=== PATIENT | female | born 1995 | race Caucasian/White ===

== ENCOUNTER 2020-05-29 19:47 | Emergency (ER) | payer OTHER ==
[2020-05-29] MEDS ORDERED: NA CHLORIDE 0.9% 1,000 ML ONE (20:25)
[2020-05-29 20:33] LABS: Absolute Lymphocytes (CBC) 0.9 K/uL (0.7-4.9); Basophils % 0.2 % (0-1.3); Hematocrit 42.3 % (36.0-45.0); Lymphocytes % 9.1 % (15.3-44.8); MPV 9.4 fL (7.6-11.3)
[2020-05-29 20:42] LABS: Albumin 3.9 g/dL (3.4-5.0); Bilirubin Direct 0.1 mg/dL (0-0.2); Bilirubin Total 0.4 mg/dL (0.2-1.0); Potassium 3.5 mmol/L (3.5-5.1); Protein, Total 8.2 g/dL (6.4-8.2); Urine Bacteria >50 /HPF (<20); Urine Culture Reflex Order REFLEXED; Urine RBC <5 /HPF (NONE SEEN)
[2020-05-29] MEDS ORDERED: CEFTRIAXONE/SWI 1gm 1 GM/10 ML SYR ONE (22:12)
[2020-05-29] MEDS ORDERED: KETOROLAC 30 MG/ML INJ ONE (22:12)
[2020-05-29 22:32] LABS: Urine Specific Gravity 1.015 (1.005-1.030)
[2020-05-29 22:32] LABS: Urine Blood TRACE (NEG); Urine Glucose NEGATIVE (NEG); Urine Protein NEGATIVE (NEG); Urine Specific Gravity 1.015 (1.005-1.030)
--- NOTE | 2020-05-29 22:37 | ER ---
Nurse's Notes [facility] Name: Heide Gilbert Age: 25 yrs Sex: Female : 1995 Arrival Date: 05/29/2020 Time: 19:53 Bed 2 Private MD: Diagnosis: Lower abdominal pain, unspecified;Urinary tract infection, site not specified Presentation: 05/29 20:04 Chief complaint: Patient states: Pain to epigastric area that began yesterday, now pain lp1 radiating to RLQ of abdomen with diarrhea and nausea; Temp of 102 at home, took Ibuprofen x2 at 1800; states some pain to lower back. Coronavirus screen: Client denies travel out of the [place] in the last 14 days. At this time, the client does not indicate any symptoms associated with coronavirus-19. Ebola Screen: No symptoms or risks identified at this time. Initial Sepsis Screen: Does the patient meet any 2 criteria? HR > 90 bpm. Does the patient have a suspected source of infection? No. Patient's initial sepsis screen is negative. Risk Assessment: Do you want to hurt yourself or someone else? Patient reports no desire to harm self or others. Onset of symptoms was May 28, 2020. 20:04 Method Of Arrival: Ambulatory lp1 20:04 Acuity: DOROTEO 3 lp1 Triage Assessment: 22:00 GI: Reports lower abdominal pain. 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 - Social history:: Smoking status: Patient denies any tobacco usage or history of. Screenin:07 Abuse screen: Denies threats or abuse. Denies injuries from another. Nutritional lp1 screening: No deficits noted. Tuberculosis screening: No symptoms or risk factors identified. Fall Risk None identified. Assessment: 20:17 General: Appears comfortable, Behavior is calm, cooperative. Pain: Complains of pain in rv right lower quadrant Pain radiates to right low back Pain currently is 7 out of 10 on a pain scale. Quality of pain is described as crampy, sharp. Neuro: Level of Consciousness is awake, alert, obeys commands, Oriented to person, place, time, situation. Cardiovascular: Patient's skin is warm and dry. Rhythm is sinus tachycardia. Respiratory: Airway is patent Respiratory effort is even, unlabored. GI: Abdomen is round non-distended. : No signs and/or symptoms were reported regarding the genitourinary system. Derm: Skin is intact. 20:38 Reassessment: PO CONTRAST FINISHED AT 2019. rv 22:06 Reassessment: PATIENT IS BACK FROM CT SCAN. AWAITING RESULT. PAIN REASSESSED. NEW rv ORDERS RECEIVED. GIVEN TORADOL AND ROCEPHIN. Vital Signs: 20:04 BP 110 / 99; Pulse 129; Resp 16; Temp 99.3(O); Pulse Ox 100% on R/A; Weight 46.72 kg lp1 (R); Height 5 ft. 0 in. (152.40 cm); Pain 5/10; 21:25 Pulse 109; Resp 18; Pulse Ox 100% on R/A; mg2 22:05 BP 124 / 82; Pulse 109; Resp 18; Pulse Ox 100% ; rv 23:03 BP 121 / 80; Pulse 97; Resp 17; Temp 98.7; Pulse Ox 100% on R/A; rv 20:04 Body Mass Index 20.12 (46.72 kg, 152.40 cm) lp1 ED Course: 19:53 Patient arrived in ED. am2 19:57 Aleks Fong, IVETTE is Primary Nurse. rv 19:57 Loco Reed PA is PHCP. cp 19:57 Loco Razo MD is Attending Physician. cp 19:58 Calvin Taylor MD is Attending Physician. cp 20:06 Triage completed. lp1 20:06 Arm band placed on. lp1 20:17 No provider procedures requiring assistance completed. Inserted saline lock: 20 gauge mg2 in left antecubital area, using aseptic technique. Blood collected. 20:19 Patient has correct armband on for positive identification. Pulse ox on. NIBP on. rv 21:58 CT completed. Patient tolerated procedure well. Patient moved back from CT. nj 22:26 Abdomen In Process Unspecified. EDMS 22:36 Koffi Joshua MD is Referral Physician. cp 22:59 IV discontinued, intact, bleeding controlled, No redness/swelling at site. Pressure mg2 dressing applied. Administered Medications: 20:16 Drug: NS 0.9% 1000 ml Route: IV; Rate: 1 bolus; Site: left antecubital; rv 22:58 Follow up: Response: No adverse reaction; IV Status: Completed infusion; IV Intake: mg2 1000ml 22:05 Drug: TORadol - Ketorolac 15 mg Route: IVP; Site: left antecubital; rv 22:58 Follow up: Response: No adverse reaction mg2 22:05 Drug: Rocephin 1 grams Route: IV; Rate: calculated rate; Site: left antecubital; rv 22:58 Follow up: Response: No adverse reaction; IV Status: Completed infusion mg2 23:00 Drug: HYDROcodone-acetaminophen (5 mg-500 mg) 1 tabs {Note: RASS 0.} Route: PO; rv 23:03 Follow up: Response: Medication administered at discharge. rv Intake: 22:58 IV: 1000ml; Total: 1000ml. mg2 Outcome: 22:37 Discharge ordered by . cp 22:59 Discharged to home ambulatory. mg2 22:59 Condition: stable 22:59 Discharge instructions given to patient, Instructed on discharge instructions, follow up and referral plans. medication usage, Demonstrated understanding of instructions, follow-up care, medications, Prescriptions given X 3. 23:04 Patient left the ED. rv Addendum: 06/02/2020 07:50 Addendum: Culture Results: Positive urine culture. No further action required. Bacteria h b sensitive to prescribed antibiotic. Signatures: Dispatcher [employer] EDAR Ping Ceja RN RN lp1 Loco Reed PA PA cp Yenni Villela RN RN Brett Diaz Amanda amGabriel Park RN RN mg2 Aleks Fong RN RN rv
--- NOTE | 2020-05-29 22:37 | EDPHYS ---
Physician Documentation [facility] Name: Heide Gilbert Age: 25 yrs Sex: Female : 1995 Arrival Date: 05/29/2020 Time: 19:53 Bed 2 Private MD: ED Physician Calvin Taylor HPI: 05/29 20:15 This 25 yrs old Female presents to ER via Ambulatory with complaints of Nausea, Fever, cp Abdominal Pain. 20:15 The patient presents with abdominal pain started mid abdomen yesterday, now having pain cp right lower abdomen. 20:15 Onset: The symptoms/episode began/occurred yesterday. Associated signs and symptoms: cp Pertinent positives: anorexia, diarrhea, nausea, Pertinent negatives: blood in stools, constipation, dysuria, fever, vaginal discharge, vomiting. 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 - Social history:: Smoking status: Patient denies any tobacco usage or history of. ROS: 20:15 Constitutional: Negative for fever, poor PO intake. cp 20:15 Eyes: Negative for injury, pain, redness, and discharge. cp 20:15 ENT: Negative for ear pain, sore throat, difficulty swallowing, difficulty handling secretions. 20:15 Cardiovascular: Negative for chest pain. 20:15 Respiratory: Negative for cough. 20:15 Abdomen/GI: Positive for abdominal pain, nausea, diarrhea, anorexia, Negative for constipation. 20:15 Back: Positive for pain at rest, of the low back area. 20:15 : Negative for urinary symptoms, vaginal bleeding. 20:15 Neuro: Negative for altered mental status, headache, weakness. 20:15 All other systems are negative. Exam: 20:30 Constitutional: The patient appears in no acute distress, alert, awake, non-toxic, well cp developed, well nourished. 20:30 Head/Face: Normocephalic, atraumatic. cp 20:30 Eyes: Periorbital structures: appear normal, Conjunctiva: normal, no exudate, no injection, Sclera: no appreciated abnormality. 20:30 ENT: External ear(s): are unremarkable, Nose: is normal, Posterior pharynx: Airway: no evidence of obstruction, patent. 20:30 Chest/axilla: Inspection: normal, Palpation: is normal, no crepitus, no tenderness. 20:30 Cardiovascular: Rate: tachycardic, Rhythm: regular. 20:30 Respiratory: the patient does not display signs of respiratory distress, Respirations: normal, no use of accessory muscles, no retractions. 20:30 Abdomen/GI: Inspection: abdomen appears normal, Bowel sounds: active, all quadrants, Palpation: soft, in all quadrants, mild abdominal tenderness, in the right lower quadrant, rebound tenderness, is not appreciated, involuntary guarding, is not appreciated. 20:30 Back: CVA tenderness, is absent. 20:30 Neuro: Orientation: to person, place \T\ time. Mentation: is normal. Vital Signs: 20:04 BP 110 / 99; Pulse 129; Resp 16; Temp 99.3(O); Pulse Ox 100% on R/A; Weight 46.72 kg lp1 (R); Height 5 ft. 0 in. (152.40 cm); Pain 5/10; 21:25 Pulse 109; Resp 18; Pulse Ox 100% on R/A; mg2 22:05 BP 124 / 82; Pulse 109; Resp 18; Pulse Ox 100% ; rv 23:03 BP 121 / 80; Pulse 97; Resp 17; Temp 98.7; Pulse Ox 100% on R/A; rv 20:04 Body Mass Index 20.12 (46.72 kg, 152.40 cm) lp1 MDM: 20:02 Patient medically screened. cp 20:30 Differential diagnosis: appendicitis, Ectopic , gastritis, Ovarian Torsion, cp Pelvic Inflammatory Disease, Pyelonephritis, Tubal Ovarian Abcess, Ureterolithiasis, urinary tract infection. 22:35 Data reviewed: vital signs, nurses notes, lab test result(s), radiologic studies, CT cp scan, I have discussed the patient's presentation/case with the attending Emergency Department Physician;. Counseling: I had a detailed discussion with the patient and/or guardian regarding: the historical points, exam findings, and any diagnostic results supporting the discharge/admit diagnosis, lab results, radiology results, to return to the emergency department if symptoms worsen or persist or if there are any questions or concerns that arise at home. Response to treatment: VSS. Pain improved. Will discharge to home for continued monitoring. 05/29 20:20 Order name: Urine Dipstick--Ancillary (enter results) 05/29 20:21 Order name: Urine --Ancillary (enter results) 05/29 22:19 Order name: Basic Metabolic Panel [facility] 05/29 22:19 Order name: Liver (Hepatic) Function [facility] 05/29 22:19 Order name: Lipase [facility] 05/29 22:19 Order name: CBC with Automated Diff [facility] 05/29 22:19 Order name: Urine Microscopic Only [facility] 05/29 22:19 Order name: Test, Urine [facility] 05/29 22:21 Order name: Urine Culture [facility] 05/29 20:06 Order name: IV Saline Lock; Complete Time: 20:11 mg2 05/29 20:06 Order name: Labs collected and sent; Complete Time: 20:11 mg2 05/29 20:09 Order name: Urine Dipstick-Ancillary (obtain specimen); Complete Time: 20:16 cp 05/29 20:09 Order name: Urine Test (obtain specimen); Complete Time: 20:16 cp 05/29 20:09 Order name: CT Abd/Pelvis - PO and IV Contrast cp 05/29 22:25 Order name: Abdomen [facility] 05/29 22:35 Order name: PO challenge; Complete Time: 22:58 cp Administered Medications: 20:16 Drug: NS 0.9% 1000 ml Route: IV; Rate: 1 bolus; Site: left antecubital; rv 22:58 Follow up: Response: No adverse reaction; IV Status: Completed infusion; IV Intake: mg2 1000ml 22:05 Drug: TORadol - Ketorolac 15 mg Route: IVP; Site: left antecubital; rv 22:58 Follow up: Response: No adverse reaction mg2 22:05 Drug: Rocephin 1 grams Route: IV; Rate: calculated rate; Site: left antecubital; rv 22:58 Follow up: Response: No adverse reaction; IV Status: Completed infusion mg2 23:00 Drug: HYDROcodone-acetaminophen (5 mg-500 mg) 1 tabs {Note: RASS 0.} Route: PO; rv 23:03 Follow up: Response: Medication administered at discharge. rv Disposition: 05/30 05:08 Co-signature as Attending Physician, Calvin Taylor MD I agree with the assessment and tw4 plan of care. Disposition: 05/29/20 22:37 Discharged to Home. Impression: Lower abdominal pain, unspecified, Urinary tract infection, site not specified. - Condition is Stable. - Discharge Instructions: Abdominal Pain, Adult, Urinary Tract Infection, Adult. - Prescriptions for Bentyl 20 mg Oral Tablet - take 1 tablet by ORAL route every 6 hours As needed; 20 tablet. Zofran 4 mg Oral Tablet - take 1 tablet by ORAL route every 12 hours As needed; 20 tablet. Cipro 500 mg Oral Tablet - take 1 tablet by ORAL route every 12 hours for 7 days; 14 tablet. Fluconazole 150 mg Oral Tablet - take 1 tablet by ORAL route once daily take 1 tablet at onset of symptoms, take second tablet after finishing antibiotics; 2 tablet. - Medication Reconciliation Form, Thank You Letter, Antibiotic Education, Prescription Opioid Use form. - Follow up: Koffi Joshua MD; When: 2 - 3 days; Reason: Recheck today's complaints. - Problem is new. - Symptoms have improved. Signatures: Dispatcher [employer] Ping Claudio, RN RN lp1 Loco Reed PA PA cp Wadley, Terrence, MD MD tw4 Gabriel Black RN RN mg2 Aleks Fong RN RN rv Corrections: (The following items were deleted from the chart) 05/29 22:37 22:15 UA MICROSCOPIC+U.LAB.BRZ ordered. EDMS EDMS 22:37 22:15 BASIC METABOLIC PANEL+C.LAB.BRZ ordered. EDMS EDMS 22:37 22:15 CBC+H.LAB.BRZ ordered. EDMS EDMS 22:37 22:15 HEPATIC FUNCTION+C.LAB.BRZ ordered. EDMS EDMS 22:37 22:15 LIPASE+C.LAB.BRZ ordered. [facility] EDMS 22:38 22:37 05/29/2020 22:37 Discharged to Home. Impression: Lower abdominal pain, cp unspecified. Condition is Stable. Forms are Medication Reconciliation Form, Thank You Letter, Antibiotic Education, Prescription Opioid Use. Follow up: Koffi Joshua; When: 2 - 3 days; Reason: Recheck today's complaints. Problem is new. Symptoms have improved. cp 23:04 22:38 05/29/2020 22:37 Discharged to Home. Impression: Lower abdominal pain, rv unspecified; Urinary tract infection, site not specified. Condition is Stable. Discharge Instructions: Abdominal Pain, Adult, Urinary Tract Infection, Adult. Prescriptions for Bentyl 20 mg Oral Tablet - take 1 tablet by ORAL route every 6 hours As needed; 20 tablet, Zofran 4 mg Oral Tablet - take 1 tablet by ORAL route every 12 hours As needed; 20 tablet, Cipro 500 mg Oral Tablet - take 1 tablet by ORAL route every 12 hours for 7 days; 14 tablet. and Forms are Medication Reconciliation Form, Thank You Letter, Antibiotic Education, Prescription Opioid Use. Follow up: Koffi Joshua; When: 2 - 3 days; Reason: Recheck today's complaints. Problem is new. Symptoms have improved. cp
[2020-05-29] MEDS ORDERED: HYDROCODONE/APAP 5/325 MG TAB ONE (23:07)
--- NOTE | 2020-05-30 14:43 | RAD REPORT ---
EXAM DESCRIPTION: CT ABDOMEN AND PELVIS WITH CONTRAST CLINICAL HISTORY: RLQ COMPARISON: None Available. TECHNIQUE: CT of the abdomen and pelvis performed following IV administration of iodinated contras t. Oral contrast was also administered. FINDINGS: Lung Bases: The visualized lung bases are clear. Bones: No destructive bone lesions identified. Abdomen: Liver: The liver has normal size and density. Mild dilation of the intrahepatic bile ducts. Common bi le duct measures 0.5 cm. Gallbladder: No calcified gallstones. Spleen, Pancreas, and Adrenal Glands: Swollen megaly. Pancreas and adrenal glands are unremarkable. Kidneys: No hydronephrosis or obstructing calculus. Vasculature: The aorta and IVC have normal caliber and position. The portal vein is patent. The pro ximal visceral and renal arteries are patent. Stomach: The stomach and duodenum have normal course. Other: No free intraperitoneal air. No free fluid or lymphadenopathy. Pelvis: Bladder: Urinary bladder is unremarkable. Bowel: No dilated loops of large or small bowel. Wall thickening of the terminal ileum. Appendix: Normal appendix. Pelvis: Uterus is not enlarged. IMPRESSION: 1. Wall thickening of the terminal ileum. This could be seen with inflammatory or infect ious enteritis. 2. Normal appendix. 2. Cardiomegaly. 4. Mild intrahepatic biliary dilatation with normal caliber common bile duct. This exam was performed according to our departmental dose-optimization program, which includes autom ated exposure control, adjustment of the mA and/or kV according to patient size and/or use of iterati ve reconstruction technique. Electronically signed by: Guanako Corrales 05/29/2020 10:22 PM CDT Due to temporary technical issues with the PACS/Fluency reporting system, reports are being signed by the in house radiologist without review as a courtesy to ensure prompt reporting. The interpreting r adiologist is fully responsible for the content of the report.
[2020-05-31 06:07] VITALS: O2SAT 100
[2020-05-31 06:11] VITALS: BP 121/80; TEMP 98.7
== END 2020-05-29 23:04 | disposition home or self-care (01) ==
LOC: ER 19:47
DX: N39.0 Urinary tract infection, site not specified (principal); Z88.5 Allergy status to narcotic agent
CPT/HCPCS: 96365; 96361; 87088; 85025; 87086; 80048; 36415; 81025 ×2; 80076; 87077; 87186; 83690; 74177; 96375; 99285; Q9967; J0696; J7030; 81003; 81015